=== PATIENT | male | born 1995 | race American Indian/Alaskan Native ===

== ENCOUNTER 2016-12-15 09:38 | Emergency (ER) | payer SELFPAY ==
[2016-12-15 10:05] VITALS: BP 122/81
[2016-12-15] MEDS ORDERED: PHENERGAN/CODEINE 6.25-10 MG/5ML PO ONE (10:50)
[2016-12-15] MEDS ORDERED: CLARITIN PO ONE (10:50)
--- NOTE | 2016-12-15 11:06 | XRay Report ---
ROUTINE CHEST, TWO VIEWS: HISTORY: Cough, congestion. The trachea, heart, mediastinal contour, lung boland and bony thorax are unremarkable. IMPRESSION: Unremarkable chest x-ray.
--- NOTE | 2016-12-15 11:50 | Emergency Department Report ---
Entered by BALTAZAR GARSIA, acting as scribe for PATRIA MARTINEZ PA. - General Chief Complaint: Upper Respiratory Infection Stated Complaint: FLU SYMPTOMS Time Seen by Provider: 12/15/16 10:40 Source: patient Mode of arrival: Ambulatory Limitations: No Limitations - History of Present Illness Initial Comments: 21 y/o male presents to the ED c/o sore throat, cough, congestion x 2 days. Associated symptoms include rhinorrhea and nasal congestion but he denies fever , chills, headache, abdominal pain, nausea, vomiting and diarrhea. Patient states symptoms became worse today. No alleviating factors despite taking Aspirin and no aggravating factors. NKDA. TAI Complaint: cough, sore throat, nasal congestion Onset/Timin -: days(s) (2) Severity: mild Quality: aching Consistency: constant Improves With: nothing Worsens With: nothing Associated Symptoms: rhinorrhea, nasal congestion, sore throat, cough. denies: fever, chills, headache, stiff neck, chest pain, abdominal pain, nausea, vomiting, diarrhea Treatments Prior to Arrival: Aspirin ED Review of Systems Comment: All other systems reviewed and negative Constitutional: denies: chills, fever Eyes: denies: eye pain, eye discharge, vision change ENT: throat pain, congestion, other (rhinorrhea). denies: ear pain, dental pain Respiratory: cough. denies: stridor, wheezing Cardiovascular: denies: chest pain, palpitations Endocrine: no symptoms reported Gastrointestinal: denies: abdominal pain, nausea, vomiting, diarrhea Genitourinary: denies: urgency, dysuria, hematuria, discharge Musculoskeletal: denies: back pain, joint swelling, arthralgia Skin: denies: rash, lesions Neurological: denies: headache, weakness, numbness, paresthesias, confusion, abnormal gait, vertigo Psychiatric: denies: anxiety, depression Hematological/Lymphatic: denies: easy bleeding, easy bruising ED Past Medical Hx - Past Medical History Previous Medical History?: No - Surgical History Past Surgical History?: No - Social History Smoking Status: Never Smoker Substance Use Type: Marijuana ED Physical Exam - General Limitations: No Limitations General appearance: alert, in no apparent distress - Head Head exam: Present: atraumatic, normocephalic, normal inspection - Eye Eye exam: Present: normal appearance, PERRL, EOMI. Absent: scleral icterus, conjunctival injection, nystagmus, periorbital swelling, periorbital tenderness Pupils: Present: normal accommodation - ENT ENT exam: Present: normal exam, normal orophraynx, mucous membranes moist, TM's normal bilaterally, normal external ear exam - Neck Neck exam: Present: normal inspection, full ROM. Absent: tenderness, meningismus, lymphadenopathy, thyromegaly - Respiratory Respiratory exam: Present: normal lung sounds bilaterally. Absent: respiratory distress, wheezes, rales, rhonchi, stridor, chest wall tenderness, accessory muscle use, decreased breath sounds, prolonged expiratory - Cardiovascular Cardiovascular Exam: Present: regular rate, normal rhythm, normal heart sounds - GI/Abdominal GI/Abdominal exam: Present: soft, normal bowel sounds. Absent: distended, tenderness, guarding, rebound - Rectal Rectal exam: Present: deferred - Extremities Exam Extremities exam: Present: normal inspection, full ROM - Back Exam Back exam: Present: normal inspection, full ROM. Absent: tenderness - Neurological Exam Neurological exam: Present: alert, oriented X3, normal gait - Psychiatric Psychiatric exam: Present: normal affect, normal mood - Skin Skin exam: Present: warm, dry, intact, normal color. Absent: rash ED Course Vital Signs 12/15/16 10:03 Temperature 98.1 F Pulse Rate 71 Respiratory 18 Rate Blood Pressure 122/81 O2 Sat by Pulse 100 Oximetry ED Medical Decision Making - Lab Data Flu negative Rapid strep negative Strep culture pending - Radiology Data Radiology results: report reviewed Xray Chest No acute findings per radiologist - Medical Decision Making 21 year old male presents to ED with cough, congestion and sore throat x2 days. patient has negative chest xray and negative strep and flu testing. patient is stable, neurologically intact and in no acute distress. ED Disposition Clinical Impression: Viral syndrome Disposition: DC-01 TO HOME OR SELFCARE Is pt being admited?: No Does the pt Need Aspirin: No Condition: Stable Instructions: Viral Syndrome (ED) Prescriptions: guaiFENesin DM [Robitussin Dm] 5 ml PO BID #118 ml Oxymetazoline 0.05% [Afrin] 2 spray NS BID #1 bottle Referrals: PRIMARY CARE,MD [Primary Care Provider] - 3-5 Days This documentation as recorded by the SUN falk ELIZABETH,accurately reflects the service I personally performed and the decisions made by me,PATRIA MARTINEZ PA.
== END 2016-12-15 11:46 | disposition home or self-care (01) ==
LOC: ED 09:38
DX: B34.9 Viral infection, unspecified (principal); F12.90 Cannabis use, unspecified, uncomplicated
CPT/HCPCS: 71020; 87116; 87400; 87430

== ENCOUNTER 2017-04-20 09:09 | Emergency (ER) | payer OTHER ==
[2017-04-20] MEDS ORDERED: TYLENOL PO ONE (09:28)
[2017-04-20] MEDS ORDERED: TYLENOL ONE (09:31)
[2017-04-20 09:47] LABS: Basophils % (Auto) 0.4 % (0.0-1.8); Eosinophils # (Auto) 0.1 K/mm3 (0.0-0.4); Eosinophils % (Auto) 1.2 % (0.0-4.3); Hematocrit 43.1 % (35.5-45.6); Hemoglobin 13.8 gm/dl (11.8-15.2); Lymphocytes # (Auto) 0.2 K/mm3 (1.2-5.4); Lymphocytes % (Auto) 3.1 % (13.4-35.0); Mean Corpuscular HGB Conc 32 % (32-34); Mean Corpuscular Hemoglobin 27 pg (28-32); Mean Corpuscular Volume 84 fl (84-94); Monocytes # (Auto) 0.5 K/mm3 (0.0-0.8); Monocytes % (Auto) 6.4 % (0.0-7.3); Platelet Count 254 K/mm3 (140-440); Red Blood Count 5.12 M/mm3 (3.65-5.03)
[2017-04-20 10:04] LABS: Alanine Aminotransferase 17 units/L (7-56); Albumin 4.4 g/dL (3.9-5); BUN/Creatinine Ratio 16; Blood Urea Nitrogen 14 mg/dL (9-20); Calcium 9.3 mg/dL (8.4-10.2); Hemolysis Index 28
[2017-04-20 10:41] LABS: Bilirubin,Urine NEG (Negative); Blood,Urine NEG (Negative); Color,Urine Yellow (Yellow); Mucus,Urine 2+ /HPF; Nitrite,Urine NEG (Negative)
--- NOTE | 2017-04-20 11:15 | XRay Report ---
XRAY CHEST TWO VIEWS: 04/20/17 09:09:00 CLINICAL: Productive cough with yellow sputum. COMPARISON: 12/15/16 FINDINGS: Normal heart and pulmonary vasculature. The lungs are normally expanded and clear.The bones and soft tissues are unremarkable. IMPRESSION: Normal chest.
[2017-04-20 12:07] VITALS: BP 117/79
[2017-04-20] MEDS ORDERED: TORADOL IM ONE (12:20)
--- NOTE | 2017-04-20 12:24 | Emergency Department Report ---
ED Shortness of Breath HPI - General Chief Complaint: Dyspnea/Respdistress Stated Complaint: vomiting Time Seen by Provider: 04/20/17 12:16 Source: patient Mode of arrival: Ambulatory Limitations: No Limitations - History of Present Illness Initial Comments: Patient is a 22 years old male was no significant past medical history, presented to the ER with 2 day history of fever and cough productive with yellowish sputum. Associated with some shortness of breath. The patient denied any chest pain. Patient stated that his girlfriend has the same symptoms.. MD Complaint: shortness of breath, cough -: days(s) Severity: moderate Context: recent URI - Related Data Previous Rx's Medication Instructions Recorded Last Taken Type Oxymetazoline 0.05% [Afrin] 2 spray NS BID #1 bottle 12/15/16 Unknown Rx guaiFENesin DM [Robitussin Dm] 5 ml PO BID #118 ml 12/15/16 Unknown Rx Allergies Allergy/AdvReac Type Severity Reaction Status Date / Time No Known Allergies Allergy Unverified 12/15/16 10:59 ED Review of Systems ROS: Stated complaint: vomiting Other details as noted in HPI Comment: All other systems reviewed and negative Constitutional: chills, fever Eyes: denies: eye pain ENT: congestion. denies: throat pain Respiratory: cough, shortness of breath. denies: SOB with exertion, SOB at rest , stridor, wheezing Cardiovascular: denies: chest pain, palpitations, dyspnea on exertion Gastrointestinal: denies: abdominal pain, nausea, vomiting, diarrhea, constipation, hematemesis, melena, hematochezia Genitourinary: denies: urgency, dysuria, frequency, hematuria, testicular pain, testicular mass Musculoskeletal: denies: back pain, joint swelling, arthralgia, myalgia Neurological: denies: headache, weakness, numbness, paresthesias, confusion, abnormal gait, vertigo ED Past Medical Hx - Past Medical History Previous Medical History?: No - Surgical History Past Surgical History?: No - Social History Smoking Status: Never Smoker - Medications Home Medications: Home Medications Medication Instructions Recorded Confirmed Last Taken Type Oxymetazoline 0.05% [Afrin] 2 spray NS BID #1 bottle 12/15/16 Unknown Rx guaiFENesin DM [Robitussin Dm] 5 ml PO BID #118 ml 08/26/17 Unknown Rx ED Physical Exam - General Limitations: No Limitations General appearance: alert, in no apparent distress - Head Head exam: Present: atraumatic, normocephalic, normal inspection - Eye Eye exam: Present: normal appearance, PERRL Pupils: Present: normal accommodation - ENT ENT exam: Present: normal exam, normal orophraynx, mucous membranes moist, TM's normal bilaterally - Neck Neck exam: Present: normal inspection, full ROM. Absent: tenderness, meningismus, lymphadenopathy, thyromegaly - Respiratory Respiratory exam: Present: normal lung sounds bilaterally. Absent: respiratory distress, wheezes, rales, rhonchi, stridor, chest wall tenderness, accessory muscle use, decreased breath sounds, prolonged expiratory - Cardiovascular Cardiovascular Exam: Present: regular rate, normal rhythm, normal heart sounds - GI/Abdominal GI/Abdominal exam: Present: soft, normal bowel sounds. Absent: distended, tenderness, guarding, rebound, rigid, organomegaly, mass, bruit, pulsatile mass , hernia - Extremities Exam Extremities exam: Present: normal inspection, full ROM, normal capillary refill - Back Exam Back exam: Present: normal inspection, full ROM. Absent: tenderness, CVA tenderness (L), paraspinal tenderness, vertebral tenderness - Neurological Exam Neurological exam: Present: alert, oriented X3, CN II-XII intact, normal gait, motor sensory deficit - Skin Skin exam: Present: warm, intact, normal color. Absent: cyanosis, diaphoretic, erythema, urticaria ED Course Vital Signs 04/20/17 04/20/17 09:22 12:06 Temperature 101.6 F H 97.9 F Pulse Rate 112 H 110 H Respiratory 18 18 Rate Blood Pressure 125/71 Blood Pressure 117/79 [Left] O2 Sat by Pulse 100 Oximetry ED Medical Decision Making - Lab Data Result diagrams: 04/20/17 09:30 04/20/17 09:30 - Radiology Data Radiology results: report reviewed - Medical Decision Making Chest x-ray did not show anything acute. Critical care attestation.: If time is entered above; I have spent that time in minutes in the direct care of this critically ill patient, excluding procedure time. ED Disposition Clinical Impression: Influenza A, Fever Disposition: - TO HOME OR SELFCARE Is pt being admited?: No Condition: Stable Instructions: Influenza (ED) Referrals: PRIMARY CARE, [Primary Care Provider] - 3-5 Days
== END 2017-04-20 15:02 | disposition home or self-care (01) ==
LOC: ED 09:09
DX: J09.X2 Influenza due to identified novel influenza A virus with other respiratory manifestations (principal); R50.9 Fever, unspecified
CPT/HCPCS: 36415; 71020; 80053; 81001; 85025; 87400; 96372; 99284; J1885

== ENCOUNTER 2017-12-21 13:43 | Emergency (ER) | payer SELFPAY ==
[2017-12-21 13:49] VITALS: BP 124/91
--- NOTE | 2017-12-21 16:22 | Emergency Department Report ---
ED ENT HPI - General Chief complaint: Sore Throat Stated complaint: SORE THROAT Time Seen by Provider: 12/21/17 16:10 Source: patient Mode of arrival: Ambulatory Limitations: No Limitations - History of Present Illness Initial comments: She is a 22-year-old Female who states he's had a sore throat for approximately 3 days. Patient vomited 3 days ago but has not vomited since. Patient states the pain is 7 out of 10 severity is worse when he swallows. Patient denies any cough congestion and fevers chills at this time. - Related Data Previous Rx's Medication Instructions Recorded Last Taken Type Oxymetazoline 0.05% [Afrin] 2 spray NS BID #1 bottle 12/15/16 Unknown Rx guaiFENesin DM [Robitussin Dm] 5 ml PO BID #118 ml 12/15/16 Unknown Rx Oseltamivir [Tamiflu] 75 mg PO BID #10 cap 04/20/17 Unknown Rx guaiFENesin/CODEINE [Robitussin AC] 10 ml PO TID #100 ml 04/20/17 Unknown Rx Azithromycin [Zithromax Z-MARCO] 250 mg PO DAILY #6 tablet 12/21/17 Unknown Rx predniSONE [Deltasone] 20 mg PO QDAY #5 tab 12/21/17 Unknown Rx traMADol [Ultram] 50 mg PO Q6HR PRN #10 tablet 12/21/17 Unknown Rx Allergies Allergy/AdvReac Type Severity Reaction Status Date / Time No Known Allergies Allergy Unverified 12/15/16 10:59 ED Dental HPI - General Chief complaint: Sore Throat Stated complaint: SORE THROAT Time Seen by Provider: 12/21/17 16:10 Source: patient Mode of arrival: Ambulatory Limitations: No Limitations - Related Data Previous Rx's Medication Instructions Recorded Last Taken Type Oxymetazoline 0.05% [Afrin] 2 spray NS BID #1 bottle 12/15/16 Unknown Rx guaiFENesin DM [Robitussin Dm] 5 ml PO BID #118 ml 12/15/16 Unknown Rx Oseltamivir [Tamiflu] 75 mg PO BID #10 cap 04/20/17 Unknown Rx guaiFENesin/CODEINE [Robitussin AC] 10 ml PO TID #100 ml 04/20/17 Unknown Rx Azithromycin [Zithromax Z-MARCO] 250 mg PO DAILY #6 tablet 12/21/17 Unknown Rx predniSONE [Deltasone] 20 mg PO QDAY #5 tab 12/21/17 Unknown Rx traMADol [Ultram] 50 mg PO Q6HR PRN #10 tablet 12/21/17 Unknown Rx Allergies Allergy/AdvReac Type Severity Reaction Status Date / Time No Known Allergies Allergy Unverified 12/15/16 10:59 ED Review of Systems ROS: Stated complaint: SORE THROAT Other details as noted in HPI Comment: All other systems reviewed and negative ED Past Medical Hx - Past Medical History Previous Medical History?: No - Surgical History Past Surgical History?: No - Social History Smoking Status: Current Every Day Smoker Substance Use Type: Alcohol, Marijuana - Medications Home Medications: Home Medications Medication Instructions Recorded Confirmed Last Taken Type Oxymetazoline 0.05% [Afrin] 2 spray NS BID #1 bottle 12/15/16 Unknown Rx guaiFENesin DM [Robitussin Dm] 5 ml PO BID #118 ml 12/15/16 Unknown Rx Oseltamivir [Tamiflu] 75 mg PO BID #10 cap 04/20/17 Unknown Rx guaiFENesin/CODEINE [Robitussin AC] 10 ml PO TID #100 ml 04/20/17 Unknown Rx Azithromycin [Zithromax Z-MARCO] 250 mg PO DAILY #6 tablet 12/21/17 Unknown Rx predniSONE [Deltasone] 20 mg PO QDAY #5 tab 12/21/17 Unknown Rx traMADol [Ultram] 50 mg PO Q6HR PRN #10 tablet 12/21/17 Unknown Rx ED Physical Exam - General Limitations: No Limitations General appearance: alert, in no apparent distress - Head Head exam: Present: atraumatic, normocephalic - Eye Eye exam: Present: normal appearance - ENT ENT exam: Present: mucous membranes moist, other (oropharynx exam shows bitonsillar swelling with erythema with no exudate.) - Neck Neck exam: Present: normal inspection, lymphadenopathy (anterior cervical) - Respiratory Respiratory exam: Present: normal lung sounds bilaterally. Absent: respiratory distress, wheezes, rales, rhonchi - Cardiovascular Cardiovascular Exam: Present: regular rate, normal rhythm. Absent: systolic murmur, diastolic murmur, rubs, gallop - GI/Abdominal GI/Abdominal exam: Present: soft, normal bowel sounds - Rectal Rectal exam: Present: deferred - Extremities Exam Extremities exam: Present: normal inspection - Back Exam Back exam: Present: normal inspection - Neurological Exam Neurological exam: Present: alert, oriented X3 - Psychiatric Psychiatric exam: Present: normal affect, normal mood - Skin Skin exam: Present: warm, dry, intact, normal color. Absent: rash ED Course Vital Signs 12/21/17 13:46 Temperature 98 F Pulse Rate 49 L Respiratory 18 Rate Blood Pressure 124/91 O2 Sat by Pulse 100 Oximetry Critical care attestation.: If time is entered above; I have spent that time in minutes in the direct care of this critically ill patient, excluding procedure time. ED Disposition Clinical Impression: Pharyngitis Qualifiers: Pharyngitis/tonsillitis etiology: other specified organisms Qualified Code(s): J02.8 - Acute pharyngitis due to other specified organisms Disposition: - TO HOME OR SELFCARE Is pt being admited?: No Does the pt Need Aspirin: No Condition: Stable Instructions: Pharyngitis (ED) Referrals: PRIMARY CARE, [Primary Care Provider] - 3-5 Days Forms: Work/School Release Form(ED)
== END 2017-12-21 16:29 | disposition home or self-care (01) ==
LOC: ED 13:43
DX: J02.8 Acute pharyngitis due to other specified organisms (principal); F17.200 Nicotine dependence, unspecified, uncomplicated; F12.10 Cannabis abuse, uncomplicated
CPT/HCPCS: 99282